=== PATIENT | male | born 1945 | race Caucasian/White ===

== ENCOUNTER 2016-08-15 20:45 | Emergency (ER) | payer BC ==
--- NOTE | 2016-08-15 21:05 | UC ---
Throat Pain/Nasal [place]ick HPI - HPI Summary HPI Summary: The patient comes in today for: 1. Cough, sore throat, rhinitis, headache; Onset: 5 days of feeling bad. Palliative/Provocative: Cough drops helps, and swallowing makes his sore throat worse. Quality: Soreness Region: Posterior pharynx, and top of his head when he coughs. Severity: 5/10 Time: Constant. Associated symptoms: Fevers: No temperatures taken. Rhinitis: yellow at times. Sinus pressure: None. Cough: productive--yellow Dsypnea: None Chest pain: None. The patient states that he does not have problems with blood pressure--that it is usually good. But, he only saw his provider about a year ago. He has no blood pressure machine at home. The patient states that he has never had a problem with poor hypertension control before. * - History of Current Complaint Chief Complaint: UCRespiratory Stated Complaint: COUGH,SORE THROAT Time Seen by Provider: 08/15/16 20:48 Hx Obtained From: Patient - Allergies/Home Medications Allergies/Adverse Reactions: Allergies Allergy/AdvReac Type Severity Reaction Status Date / Time Sulfa Drugs Allergy Intermediate Hives Verified 12/20/15 21:01 Amoxicillin [From Augmentin] AdvReac Nausea Verified 08/15/16 20:57 Clavulanic Acid AdvReac Nausea Verified 08/15/16 20:57 [From Augmentin] Erythromycin AdvReac Nausea Verified 08/15/16 20:57 Home Medications: Home Medications Loratadine [Claritin Reditabs 5 MG] 10 mg PO DAILY 08/15/16 [History Confirmed 08/15/16] PMH/Surg Hx/FS Hx/Imm Hx Other Endocrine History: No diabetes or thyroid. Cardiovascular History: Hypertension Other Cardiovascular History: No history of cardiac disease. Other Respiratory History: No history of asthma or COPD Other GI/ History: No hx of GERD or ulcers of renal disease. Other Neurological History: No hx of strokes or seizures. Other Psychological History: No anxiety or depression. Other Cancer History: No cancers. Other History Of: Anticoagulant Therapy Negative For: HIV, Hepatitis B, Hepatitis C - Surgical History Surgical History: Yes Surgery Procedure, Year, and Place: oral surg - Family History Known Family History: Positive: Hypertension, Diabetes, Respiratory Disease - Social History Occupation: Employed Full-time Alcohol Use: None Substance Use Type: None Smoking Status (MU): Former Smoker When Did the Patient Quit Smoking/Using Tobacco: 35 years - Immunization History Vaccination Up to Date: No Review of Systems Constitutional: Negative Skin: Negative Eyes: Negative ENT: Sore Throat, Nasal Discharge Respiratory: Cough Cardiovascular: Negative Gastrointestinal: Negative Genitourinary: Negative All Other Systems Reviewed And Are Negative: Yes Physical Exam Triage Information Reviewed: Yes Appearance: Well-Appearing, No Pain Distress, Well-Nourished Vital Signs: Initial Vital Signs Temp 98 F 08/15/16 20:48 Pulse 85 08/15/16 20:48 Resp 24 08/15/16 20:48 BP 182/72 08/15/16 20:48 Pulse Ox 98 08/15/16 20:48 Vital Signs Reviewed: Yes Eyes: Positive: Conjunctiva Clear. Negative: Discharge ENT: Positive: Hearing grossly normal, Other: - Right ear: Cerumen impaction. No canal erythema or edema. Left ear: TM santiago. NO canal erythema or edema.. Negative: Pharyngeal erythema, Nasal congestion, Nasal drainage, Tonsillar swelling, Tonsillar exudate Dental: Negative: Gross Decay/Caries @, Dental Fracture @ Neck: Positive: Supple, Nontender, No Lymphadenopathy. Negative: Nuchal Rigidity Respiratory: Positive: Lungs clear, No respiratory distress, No accessory muscle use. Negative: Crackles, Wheezing Cardiovascular: Positive: RRR, No Murmur Abdomen Description: Positive: Nontender, No Organomegaly, Soft. Negative: Distended, Guarding Musculoskeletal: Positive: Strength Intact, ROM Intact, No Edema Neurological: Positive: Alert, Muscle Tone Normal Psychological: Positive: Age Appropriate Behavior, Consolable Skin: Negative: rashes, breakdown Diagnostics - Laboratory Diagnostic Studies Completed/Ordered: Strep test: (-) Throat Pain/Nasal Course/Dx - Differential Dx/Diagnosis Provider Diagnoses: Sinusitis. Bronchitis. Hypertension Discharge - Discharge Plan Condition: Stable Disposition: HOME Patient Education Materials: Sinusitis (ED), Acute Bronchitis (ED) Referrals: Sydney Lake PA [Primary Care Provider] - 1 Day (See your primary care provider early next week. See us tomorrow to make sure that your blood pressure is normal. Don't take any decongestant medications.)
[2016-08-15] MEDS ORDERED: DOXYcycline CAP(*) 100 MG PO ONE (21:13)
[2016-08-15 21:18] VITALS: BP 173/78
== END 2016-08-15 21:37 | disposition home or self-care (01) ==
LOC: UCCORT 20:45
DX: J32.9 Chronic sinusitis, unspecified (principal); J40 Bronchitis, not specified as acute or chronic; I10 Essential (primary) hypertension; Z79.01 Long term (current) use of anticoagulants; Z88.1 Allergy status to other antibiotic agents; Z88.2 Allergy status to sulfonamides; Z87.891 Personal history of nicotine dependence
CPT/HCPCS: 87651; 99212; A9270-GY; G0463

== ENCOUNTER 2016-08-16 07:25 | Emergency (ER) | payer BC ==
--- NOTE | 2016-08-16 08:32 | UC ---
Throat Pain/Nasal Maverick HPI - HPI Summary HPI Summary: was here yesterday, diagnosed with Bronchitis/ sinusitis. Was told to return for re-check of BP today. Has not started Doxycycline yet. He feels same / slightly better as he took first dose last night. 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 Denies CP/palp/[place]/ fever [ End ] - History of Current Complaint Chief Complaint: UCGeneralIllness Stated Complaint: RECHECK BRONCHITIS Time Seen by Provider: 08/16/16 08:23 Hx Obtained From: Patient Onset/Duration: Gradual Onset Severity: Mild Associated Signs & Symptoms: Positive: Negative - Allergies/Home Medications Allergies/Adverse Reactions: Allergies Allergy/AdvReac Type Severity Reaction Status Date / Time Sulfa Drugs Allergy Intermediate Hives Verified 08/16/16 07:34 Amoxicillin [From Augmentin] AdvReac Nausea Verified 08/16/16 07:34 Clavulanic Acid AdvReac Nausea Verified 08/16/16 07:34 [From Augmentin] Erythromycin AdvReac Nausea Verified 08/16/16 07:34 Home Medications: Home Medications Ibuprofen [Advil] 400 mg PO ONCE PRN 08/16/16 [History Confirmed 08/16/16] PMH/Surg Hx/FS Hx/Imm Hx Previously Healthy: Yes Other History Of: Anticoagulant Therapy Negative For: HIV, Hepatitis B, Hepatitis C - Surgical History Surgical History: Yes Surgery Procedure, Year, and Place: oral surg - Family History Known Family History: Positive: Hypertension, Diabetes, Respiratory Disease - Social History Occupation: Employed Full-time - [employer] Lives: With Family Alcohol Use: None Substance Use Type: None Smoking Status (MU): Former Smoker When Did the Patient Quit Smoking/Using Tobacco: 35 years - Immunization History Vaccination Up to Date: No Review of Systems Constitutional: Negative, Fatigue Skin: Negative Eyes: Negative ENT: Negative, Nasal Discharge Respiratory: Negative, Cough Cardiovascular: Negative Gastrointestinal: Negative Genitourinary: Negative Motor: Negative Neurovascular: Negative Musculoskeletal: Negative Neurological: Negative Psychological: Negative All Other Systems Reviewed And Are Negative: Yes Physical Exam Triage Information Reviewed: Yes Appearance: Well-Appearing, No Pain Distress, Well-Nourished Vital Signs: Initial Vital Signs Temp 98.1 F 08/16/16 07:36 Pulse 85 08/16/16 07:36 Resp 18 08/16/16 07:36 BP 160/75 08/16/16 07:36 Pulse Ox 96 08/16/16 07:36 Vital Signs Reviewed: Yes Eye Exam: Normal ENT Exam: Normal ENT: Positive: Hearing grossly normal, Nasal congestion, Nasal drainage, TMs normal, Other: - mild frontal sinus pressure Dental Exam: Normal Neck exam: Normal Neck: Positive: 1 Respiratory Exam: Normal Cardiovascular Exam: Normal Abdominal Exam: Normal Musculoskeletal Exam: Normal Neurological Exam: Normal Psychological Exam: Normal Skin Exam: Normal Throat Pain/Nasal Course/Dx - Course Course Of Treatment: Today BP reduced. He is aware not to ingest sodium or decongestants. He has no CP, palp, SOB, [place], HUTCH[place], dizziness. He states he will f/ u with PCP in 2-3 days to recheck BP and f/u for infection. - Differential Dx/Diagnosis Differential Diagnosis/HQI/PQRI: Sinusitis, URI, Other - HTN Provider Diagnoses: Hypertension and Sinusitis Discharge - Discharge Plan Condition: Good Disposition: HOME Patient Education Materials: Low Sodium Diet (ED), Hypertension (ED) Referrals: Sydney Lake PA [Primary Care Provider] - (2-3 days)
[2016-08-16 08:35] VITALS: BP 150/74
== END 2016-08-16 08:41 | disposition home or self-care (01) ==
LOC: UCCORT 07:25
DX: I10 Essential (primary) hypertension (principal); J32.9 Chronic sinusitis, unspecified; Z88.1 Allergy status to other antibiotic agents; Z88.2 Allergy status to sulfonamides; Z79.01 Long term (current) use of anticoagulants; Z87.891 Personal history of nicotine dependence
CPT/HCPCS: 99211; G0463

== ENCOUNTER 2017-02-28 12:58 | Emergency (ER) | payer BC ==
[2017-02-28 13:10] VITALS: BP 140/70
--- NOTE | 2017-02-28 13:21 | UC ---
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 Pt states when he woke up this morning, he now has pain in his R rib area when he coughs. Denies fever." He is here w/ son and grandson Avery. 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 He is here b/c rt wall chest pain. he split wood a lot yestyerday and wonders if that is the cause of pain. states cough started ~ 1 wk ago w/ thick productive sputum. no left chest pain. no SOB. no wheezing. quit smoking 30 yrs ago. no known COPD. no inhalers. - History of Current Complaint Chief Complaint: UCRespiratory Stated Complaint: RESPIRATORY Time Seen by Provider: 02/28/17 13:20 - Allergies/Home Medications Allergies/Adverse Reactions: Allergies Allergy/AdvReac Type Severity Reaction Status Date / Time Sulfa Drugs Allergy Intermediate Hives Verified 02/28/17 13:10 Amoxicillin [From Augmentin] AdvReac Nausea Verified 02/28/17 13:10 Clavulanic Acid AdvReac Nausea Verified 02/28/17 13:10 [From Augmentin] Erythromycin AdvReac Nausea Verified 02/28/17 13:10 Home Medications: Home Medications Hydrochlorothiazide TAB* [Hydrodiuril TAB*] 25 mg PO DAILY 02/28/17 [History Confirmed 02/28/17] PMH/Surg Hx/FS Hx/Imm Hx Previously Healthy: Yes Cardiovascular History: Hypertension Other History Of: Anticoagulant Therapy Negative For: HIV, Hepatitis B, Hepatitis C - Surgical History Surgical History: Yes Surgery Procedure, Year, and Place: oral surg - Family History Known Family History: Positive: Hypertension, Diabetes, Respiratory Disease - Social History Alcohol Use: None Substance Use Type: None Smoking Status (MU): Former Smoker Type: Cigarettes Amount Used/How Often: 2 packs per day When Did the Patient Quit Smoking/Using Tobacco: 35 years - Immunization History Vaccination Up to Date: No Review of Systems Constitutional: Negative Skin: Negative Eyes: Negative ENT: Negative Respiratory: Cough Cardiovascular: Negative Gastrointestinal: Negative Genitourinary: Negative Motor: Negative Neurovascular: Negative Musculoskeletal: Negative Neurological: Negative Psychological: Negative Is Patient Immunocompromised?: No All Other Systems Reviewed And Are Negative: Yes Physical Exam Triage Information Reviewed: Yes Appearance: Well-Appearing, No Pain Distress, Well-Nourished - no cough Vital Signs: Initial Vital Signs Temp 97 F 02/28/17 13:03 Pulse 75 02/28/17 13:03 Resp 18 02/28/17 13:03 BP 140/70 02/28/17 13:03 Pulse Ox 98 02/28/17 13:03 Vital Signs Reviewed: Yes Eye Exam: Normal ENT Exam: Normal ENT: Positive: Pharynx normal, TMs normal. Negative: Hoarse voice Neck exam: Normal Neck: Positive: Supple, Nontender, No Lymphadenopathy Respiratory: Positive: Chest non-tender, Normal breath sounds, No respiratory distress, No accessory muscle use, Decreased breath sounds. Negative: Crackles , Rhonchi, Stridor, Wheezing Cardiovascular Exam: Normal Cardiovascular: Positive: RRR, No Murmur Abdomen Description: Positive: Nontender, Soft Musculoskeletal Exam: Normal Neurological Exam: Normal Psychological Exam: Normal Skin Exam: Normal UC Diagnostic Evaluation - Laboratory O2 Sat by Pulse Oximetry: 98 Respiratory Course/Dx - Course Course Of Treatment: CXR - IMPRESSION: HYPERINFLATION AND CHRONIC INTERSTITIAL CHANGES. MORE FOCAL FINDINGS IN THE RIGHT UPPER LOBE COULD BE SECONDARY TO AN ACUTE INTERSTITIAL PNEUMONITIS. SUGGEST FOLLOW-UP. Mildy worse from previous reported. -terated w/ doxy and medrol dose pk. -stressed the im,portance of f/ u testing and referral to a pulmonolgist b/c penumonitis and fibrosis seen. they understood me and are agreeable. I printed copy of CXR report to take to PCP this week. - Differential Dx/Diagnosis Differential Diagnosis/HQI/PQRI: Bronchitis, Lower Resp Infection Provider Diagnoses: Pneumonitis Discharge - Discharge Plan Condition: Stable Disposition: HOME Prescriptions: Doxycycline (Monohydrate) [Doxycycline Monohydrate] 100 mg PO BID #20 cap Methylprednisolone [Medrol Dosepak 4 MG*] 4 mg PO DAILY #1 boy Patient Education Materials: Pneumonitis (ED), Pulmonary Fibrosis (ED) Referrals: Sydney Lake PA [Primary Care Provider] - 3 Days Additional Instructions: -We discussed risks of prednisone including but not limited to anxiety, agitation, insomnia, GI upset, elevated blood pressures and blood sugar readings , adrenal crisis and avascular necrosis of the hip. -Make sure to take a probiotic daily while on antibiotics to help prevent a potential complication of antibiotic use called c diff. Some well known brands that can be found OTC are florastor, align and Wiziva. Make sure to complete the entire prescription unless advised otherwise by your health care provider. -I hacve printed out a copy of your chest xray report to share with your doctor. I recommend that you definitely have follow up imaging and a referral to a lung specialist as there are significant chronic findings on the xray that need to be further evaluated.
--- NOTE | 2017-02-28 13:57 | RAD ---
INDICATION: Cough. Right-sided chest pain COMPARISON: Chest x-ray January 30, 2012 TECHNIQUE: PA and lateral dual-energy views were obtained. FINDINGS: Bones/Soft Tissues: There are no acute bony findings. Cardiomediastinal: The heart is normal in size. Central pulmonary vessels are prominent consistent with pulmonary arterial hypertension. Lungs: Hyperinflation with interstitial fibrotic changes. There is mild worsening. There is more focal interstitial change in the right upper lobe which could also reflect an acute pneumonitis. Pleura: There are no pleural effusions. Other: None IMPRESSION: HYPERINFLATION AND CHRONIC INTERSTITIAL CHANGES. MORE FOCAL FINDINGS IN THE RIGHT UPPER LOBE COULD BE SECONDARY TO AN ACUTE INTERSTITIAL PNEUMONITIS. SUGGEST FOLLOW-UP.
== END 2017-02-28 14:39 | disposition home or self-care (01) ==
LOC: UCCORT 12:58
DX: J18.9 Pneumonia, unspecified organism (principal)
CPT/HCPCS: 71020; 99212; G0463

== ENCOUNTER 2019-06-15 10:24 | Emergency (ER) | payer BC, MEDICARE ==
[2019-06-15 10:37] VITALS: BP 160/85
[2019-06-15] MEDS ORDERED: Lidocaine 2% PF * 5 ML VIAL INJ ONE (10:42)
[2019-06-15] MEDS ORDERED: Tetan/Diph/Pertus SYR(Tdap)* 0.5 ML SYR(BOOSTRIX) use SYR contains LATEX IM ONE (11:02)
--- NOTE | 2019-06-15 11:45 | UC ---
Laceration HPI - HPI Summary HPI Summary: laceration right middle finger x 1 hr ago crushing injury of his right middle finger, dropped a piece of wood on his right middle finger severity is severe 8 out 10 pain , worse with touch and movement, better by applying pressure difficult moving his finger due to pain and swelling - History Of Current Complaint Chief Complaint: UCLaceration Stated Complaint: LACERATION RT MIDDLE FINGER Time Seen by Provider: 06/15/19 10:25 Hx Obtained From: Patient Laceration Location: Finger - right middle finger Mechanism Of Injury: Blunt Trauma - crushing injury Onset/Duration: Sudden Onset, Lasting Hours - 1, Still Present Severity: Severe Pain Intensity: 0 Aggravating Factors: Movement - Allergies/Home Medications Allergies/Adverse Reactions: Allergies Allergy/AdvReac Type Severity Reaction Status Date / Time amoxicillin [From Augmentin] Allergy Nausea Verified 06/15/19 10:37 clavulanic acid Allergy Nausea Verified 06/15/19 10:37 [From Augmentin] erythromycin base Allergy Nausea Verified 06/15/19 10:37 Sulfa (Sulfonamide Allergy Hives Verified 06/15/19 10:37 Antibiotics) Home Medications: Home Medications Montelukast Sodium [Singulair] 10 mg PO DAILY 01/30/12 [History Confirmed ] DOXYcycline CAP(*) [DOXYcycline 100MG CAP(*)] 100 mg PO BID #14 cap 06/15/19 [Rx ] Escitalopram * [Lexapro 10 mg (NF)] 10 mg PO DAILY 06/15/19 [History Confirmed 06/15/19] Mirtazapine TAB* [Remeron TAB*] 15 mg PO BEDTIME 06/15/19 [History Confirmed 04/04] amLODIPine TAB* [Norvasc 5 mg TAB*] 10 mg PO DAILY 06/15/19 [History Confirmed 06/15/19] PMH/Surg Hx/FS Hx/Imm Hx Respiratory History: COPD Other History Of: Anticoagulant Therapy Negative For: HIV, Hepatitis B, Hepatitis C - Surgical History Surgical History: None Surgery Procedure, Year, and Place: oral surg - Family History Known Family History: Positive: Hypertension, Diabetes, Respiratory Disease - Social History Alcohol Use: None Substance Use Type: None Smoking Status (MU): Former Smoker Type: Cigarettes Amount Used/How Often: 2 packs per day When Did the Patient Quit Smoking/Using Tobacco: 35 years - Immunization History Most Recent Tetanus Shot: unknown Vaccination Up to Date: No Review of Systems All Other Systems Reviewed And Are Negative: Yes Is Patient Immunocompromised?: No Physical Exam Triage Information Reviewed: Yes Appearance: Well-Appearing, No Pain Distress, Well-Nourished Vital Signs: Initial Vital Signs Temp 97.2 F 06/15/19 10:31 Pulse 65 06/15/19 10:31 Resp 18 06/15/19 10:31 BP 160/85 06/15/19 10:31 Pulse Ox 94 06/15/19 10:31 Vital Signs Reviewed: Yes Eye Exam: Normal Eyes: Positive: Conjunctiva Clear ENT: Positive: Normal ENT inspection, Pharynx normal Neck: Positive: Supple Respiratory: Positive: Chest non-tender, Lungs clear, Normal breath sounds Cardiovascular: Positive: RRR, No Murmur, Pulses Normal Skin: Positive: Other - laceration right middle finger , 1.5 cm deep , minimal bleeding Laceration Repair - Laceration Repair 1 Description: Irregular - right middle finger , distal phalanges Laceration Size After Repair: Length (cm) - 1.5, Width (mm) - 2, Depth (mm) - 3 Modified For Repair: No Type Injection: Digital Anesthesia Used: 2.0% Lido - 5 cc Cleansing Completed Via Routine Prep: Yes Irrigation With Pressure Irrigation Device: Yes Closure Material: Sutures Closure Method: Single Layer Suture Of: Skin Suture Type: Nylon - 5.0 nylon x 10 Diagnostics - Radiology No standard instances Radiology Interpretation Completed By: Radiologist Summary of Radiographic Findings: xray report right middle finger : no fracture noted Laceration Course/Dx - Course/Dx Course Of Treatment: monitor bp daily follow up with your pcp - Diagnosis Provider Diagnosis: Laceration of right middle finger w/o foreign body w/o damage to nail, Elevated BP without diagnosis of hypertension Discharge ED - Sign-Out/Discharge Documenting (check all that apply): Patient Departure All imaging exams completed and their final reports reviewed: Yes - Discharge Plan Condition: Stable Disposition: HOME Prescriptions: DOXYcycline CAP(*) [DOXYcycline 100MG CAP(*)] 100 mg PO BID #14 cap Patient Education Materials: Finger Laceration (ED) Referrals: Sydney Lake PA [Primary Care Provider] - Additional Instructions: follow up in 10 days for suture removal - Billing Disposition and Condition Condition: STABLE Disposition: Home
== END 2019-06-15 11:58 | disposition home or self-care (01) ==
LOC: UCCORT 10:24
DX: S61.212A Laceration without foreign body of right middle finger without damage to nail, initial encounter (principal); V91.19XA Crushed between unspecified watercraft and other watercraft or other object due to collision, initial encounter; Y92.9 Unspecified place or not applicable; Z23 Encounter for immunization; R03.0 Elevated blood-pressure reading, without diagnosis of hypertension; Z79.01 Long term (current) use of anticoagulants; Z88.1 Allergy status to other antibiotic agents; Z88.0 Allergy status to penicillin; Z88.2 Allergy status to sulfonamides; Z87.891 Personal history of nicotine dependence
CPT/HCPCS: 12001; 13131; 73140; 90715; 96372; 99212; G0463